=== PATIENT | female | born 1940 | race Caucasian/White ===

== ENCOUNTER 2018-07-15 05:28 | Inpatient (IN) | payer OTHER ==
[~2018-07-15] VITALS: Ht 152.4 cm; Wt 74.8 kg
[2018-07-15 06:22] LABS: PLATELET COUNT 266 x10^3mcL (130-400); RED CELL DISTRIBUTION WIDTH 13.3 % (11.5-14.5)
[2018-07-15 06:31] LABS: CARBON DIOXIDE 30.1 mmol/L (21-32); CHLORIDE SERUM 98 mmol/L (98-107); CREATININE SERUM 1.7 mg/dL (0.6-1.0); GLUCOSE SERUM 130 mg/dL (74-106); POTASSIUM SERUM 3.5 mmol/L (3.5-5.1); SODIUM SERUM 135 mmol/L (136-145)
[2018-07-15 06:35] LABS: ALKALINE PHOSPHATASE 106 U/L (46-116); ALT/SGPT 222 U/L (14-59); AST/SGOT 639 U/L (15-37); BILIRUBIN TOTAL 1.03 mg/dL (0.20-1.00); TOTAL PROTEIN, SERUM 7.1 g/dL (6.4-8.2)
[2018-07-15 06:37] LABS: ALBUMIN 3.1 g/dL (3.4-5.0)
[2018-07-15 07:15] LABS: BAND NEUTROPHIL 3 % (0-10); BASOPHIL 0 % (0-2); MONOCYTE 3 % (0-7); SEGMENTED NEUTROPHILS 93 % (37-75)
[2018-07-15 07:16] LABS: PLATELET MORPHOLOGY PLATELETS NORMAL; rbc morphology (normal/abnorm) ABNORMAL (NORMAL)
[2018-07-15] MEDS ORDERED: LOPRESSOR50 M1 PO (09:00)
[2018-07-15] MEDS ORDERED: CHLORTHALIDONE25 MG PO (09:01)
[2018-07-15 10:48] VITALS: BP 140/56
[2018-07-15 13:37] VITALS: BP 137/62
[2018-07-15 17:22] VITALS: BP 125/56
[2018-07-15 20:58] VITALS: BP 121/52
[2018-07-16 01:12] LABS: UA SPECIFIC GRAVITY 1.025 (1.005-1.035); microscopic required? YES; urine erythrocyte 3+ (NEGATIVE)
[2018-07-16 05:54] VITALS: BP 124/63
[2018-07-16 06:03] LABS: BASOPHIL % 0.1 % (0-2); PLATELET COUNT 227 x10^3mcL (130-400); RED CELL DISTRIBUTION WIDTH 13.9 % (11.5-14.5)
[2018-07-16 06:24] LABS: ALKALINE PHOSPHATASE 83 U/L (46-116); ALT/SGPT 154 U/L (14-59); AST/SGOT 245 U/L (15-37); BILIRUBIN TOTAL 0.44 mg/dL (0.20-1.00); CALCIUM 8.7 mg/dL (8.5-10.1); CARBON DIOXIDE 29.4 mmol/L (21-32); CHLORIDE SERUM 103 mmol/L (98-107); CREATININE SERUM 0.9 mg/dL (0.6-1.0); GLUCOSE SERUM 91 mg/dL (74-106); MAGNESIUM 1.5 mg/dL (1.8-2.4); POTASSIUM SERUM 3.3 mmol/L (3.5-5.1); SODIUM SERUM 138 mmol/L (136-145)
[2018-07-16 06:32] LABS: ALBUMIN 2.2 g/dL (3.4-5.0); TOTAL PROTEIN, SERUM 6.1 g/dL (6.4-8.2)
[2018-07-16 08:10] VITALS: BP 123/60
[2018-07-16 11:56] VITALS: BP 126/63
[2018-07-16 15:10] VITALS: BP 124/51
[2018-07-16 21:07] VITALS: BP 128/58
[2018-07-17 05:30] VITALS: BP 133/56
[2018-07-17 06:31] LABS: CALCIUM 8.3 mg/dL (8.5-10.1); CARBON DIOXIDE 28.2 mmol/L (21-32); CHLORIDE SERUM 104 mmol/L (98-107); CREATININE SERUM 0.7 mg/dL (0.6-1.0); GLUCOSE SERUM 79 mg/dL (74-106); MAGNESIUM 2.2 mg/dL (1.8-2.4); POTASSIUM SERUM 3.9 mmol/L (3.5-5.1); SODIUM SERUM 139 mmol/L (136-145)
[2018-07-17 09:07] VITALS: BP 131/71
[2018-07-17 12:02] VITALS: BP 131/71
[2018-07-23 04:26] LABS: CK-BB 0 % (0); CK-MB 0 % (0-3); CK-MM 100 % (97-100); MACRO TYPE 1 0 % (Not Observed); MACRO TYPE 2 0 % (Not Observed)
== END 2018-07-17 16:17 | DRG 557 ==
LOC: ED 05:28 → EDBEDREQSVC 08:17 → EDBEDREQ 08:21 → EDBEDREQSVC 08:21 → MU 08:23 → EDBEDREQ 08:25 → MU 10:04
PROVIDERS: Emergency Medicine; Internal Medicine Pulmonary Disease
DX: M62.82 Rhabdomyolysis (principal); G93.41 Metabolic encephalopathy; N17.9 Acute kidney failure, unspecified; E86.0 Dehydration; I10 Essential (primary) hypertension; R53.81 Other malaise; E83.42 Hypomagnesemia; E87.6 Hypokalemia
CPT/HCPCS: 90715; 97110-GP; 97116-GP; 97530-GP; J0696; J1650; J3475; J7030; J7040; Q0092